=== PATIENT | male | born 1975 | race Caucasian/White ===

== ENCOUNTER 2021-08-14 18:12 | Inpatient (IN) | payer OTHER ==
[~2021-08-14] VITALS: Ht 154.7 cm; Wt 82.1 kg
[2021-08-14] MEDS ORDERED: SODIUM CHLORIDE 0.9% 1000ML 1,000 ML IV STA (19:28)
[2021-08-14] MEDS ORDERED: ONDANSETRON HCL INJ 2MG/ML 2ML 2 MG/ML VIAL IV STA (19:28)
[2021-08-14] MEDS ORDERED: FAMOTIDINE 20 MG/2 ML VIAL IV STA (19:28)
[2021-08-14] MEDS ORDERED: SODIUM CHLORIDE 0.9% 50ML 50 ML ONE ×3 (19:49→21:23)
[2021-08-14] MEDS ORDERED: IOPAMIDOL 370 MG/ML 200 ML INFUS..BTL INJ ONE ×2 (19:49→20:40)
[2021-08-14] MEDS ORDERED: PIPERACILLIN/TAZOBACTAM 3.375 GM in SODIUM CHLORIDE 0.9% 50ML 50 ML IV STA (20:22)
[2021-08-14] MEDS ORDERED: SODIUM CHLORIDE 0.9% 1000ML 1,000 ML ONE (21:07)
[2021-08-14] MEDS ORDERED: FAMOTIDINE 20 MG/2 ML VIAL IV ONE (21:07)
[2021-08-14] MEDS ORDERED: ONDANSETRON HCL INJ 2MG/ML 2ML 2 MG/ML VIAL ONE (21:07)
[2021-08-14] MEDS ORDERED: PIPERACILLIN/TAZOBACTAM 2.25 GM in SODIUM CHLORIDE 0.9% 50ML 50 ML IV ONE (21:15)
[2021-08-14] MEDS ORDERED: PIPERACILLIN/TAZOBACTAM SOD 2.25 GM VIAL ONE (21:23)
[2021-08-14] MEDS ORDERED: MORPHINE SULFATE INJ 4 MG/ML INJ 1ML IV PRN (22:00)
[2021-08-14] MEDS ORDERED: ONDANSETRON HCL INJ 2MG/ML 2ML 2 MG/ML VIAL IV PRN (22:00)
[2021-08-14 23:41] VITALS: BP 104/73
[2021-08-14] MEDS: SODIUM CHLORIDE 0.9% 1000ML 1,000 ML IV SCH (23:45)
[2021-08-15] VITALS (7 sets, daily range): BP systolic 99–107; BP diastolic 63–75
[2021-08-15] MEDS: PIPERACILLIN/TAZOBACTAM 3.375 GM in SODIUM CHLORIDE 0.9% 50ML 50 ML IV SCH ×4 (04:00→17:32)
[2021-08-15] MEDS: SODIUM CHLORIDE 0.9% 1000ML 1,000 ML IV SCH ×3 (06:00→22:21)
[2021-08-15 08:51] LABS: BASOPHILS # (AUTO) 0.1 (0.0-0.1); BASOPHILS % 0.7 % (0.0-1.0); EOSINOPHILS # (AUTO) 0.3 (0.0-0.4); EOSINOPHILS % 3.1 % (0.0-6.0); HEMATOCRIT 39.3 % (38.2-49.6); LYMPHOCYTES # (AUTO) 2.5 (1.0-3.2); LYMPHOCYTES % 28.9 % (18.0-39.1); MEAN CORPUSCULAR HGB CONC 33.1 g/dL (31-35); MEAN CORPUSCULAR VOLUME 87.7 fL (81-99); MONOCYTES # (AUTO) 0.6 (0.2-0.8); MONOCYTES % 7.4 % (4.4-11.3); NEUTROPHILS # (AUTO) 5.1 (2.1-6.9); NEUTROPHILS % 59.7 % (38.7-80.0); PLATELET COUNT 305 x10e3/uL (140-360); RED BLOOD COUNT 4.48 x10e6/uL (4.3-5.7); RED CELL DISTRIBUTION WIDTH 13.2 % (11.7-14.4)
[2021-08-15 09:32] LABS: ALBUMIN 3.3 g/dL (3.5-5.0); ALBUMIN/GLOBULIN RATIO 0.9 (0.8-2.0); ANION GAP 14.3 mmol/L (8-16); CALCIUM 8.7 mg/dL (8.4-10.2); CREATININE, SERUM 1.11 mg/dL (0.72-1.25); POTASSIUM 3.3 mmol/L (3.5-5.1)
[2021-08-16] VITALS (8 sets, daily range): BP systolic 99–114; BP diastolic 66–74
[2021-08-16] MEDS: PIPERACILLIN/TAZOBACTAM 3.375 GM in SODIUM CHLORIDE 0.9% 50ML 50 ML IV SCH ×5 (00:12→23:47)
[2021-08-16] MEDS: SODIUM CHLORIDE 0.9% 1000ML 1,000 ML IV SCH ×3 (05:32→22:00)
[2021-08-16] MEDS ORDERED: PIPERACILLIN/TAZOBACTAM 3.375 GM VIAL ONE (13:13)
[2021-08-16] MEDS ORDERED: BUPIVACAINE 0.25% 30ML SDV ONE (13:29)
[2021-08-16] MEDS ORDERED: HYDROMORPHONE 1MG/1ML INJ IV PRN (14:15)
[2021-08-16] MEDS ORDERED: HYDROCODONE/APAP 7.5MG-325MG 1 EA TAB PO PRN (14:15)
[2021-08-16] MEDS ORDERED: FENTANYL CITRATE/PF 100MCG/2 ML INJ ONE (14:30)
[2021-08-16] MEDS ORDERED: MEPERIDINE HCL INJ 25 MG/ML VIAL ONE (14:53)
[2021-08-16] MEDS: KETOROLAC TROMETHAMINE 30 MG/ML VIAL IV PRN (22:25)
[2021-08-17] VITALS: BP 104/67
[2021-08-17 04:00] VITALS: BP 98/65
[2021-08-17] MEDS: SODIUM CHLORIDE 0.9% 1000ML 1,000 ML IV SCH (05:44)
[2021-08-17] MEDS: PIPERACILLIN/TAZOBACTAM 3.375 GM in SODIUM CHLORIDE 0.9% 50ML 50 ML IV SCH ×2 (05:45→11:57)
[2021-08-17 06:20] LABS: BASOPHILS % 0.2 % (0.0-1.0); EOSINOPHILS % 0.3 % (0.0-6.0); HEMATOCRIT 35.9 % (38.2-49.6); LYMPHOCYTES # (AUTO) 2.2 (1.0-3.2); LYMPHOCYTES % 19.7 % (18.0-39.1); MEAN CORPUSCULAR HEMOGLOBIN 29.1 pg (28-32); MEAN CORPUSCULAR HGB CONC 33.4 g/dL (31-35); MEAN CORPUSCULAR VOLUME 87.1 fL (81-99); MONOCYTES # (AUTO) 0.7 (0.2-0.8); MONOCYTES % 6.6 % (4.4-11.3); NEUTROPHILS # (AUTO) 8.1 (2.1-6.9); NEUTROPHILS % 72.8 % (38.7-80.0); PLATELET COUNT 283 x10e3/uL (140-360); RED BLOOD COUNT 4.12 x10e6/uL (4.3-5.7)
[2021-08-17 06:51] LABS: ALBUMIN 3.1 g/dL (3.5-5.0); ALBUMIN/GLOBULIN RATIO 0.9 (0.8-2.0)
[2021-08-17 07:48] VITALS: BP_SYST 109; BP_SYST 156; BP_DIAS 72; BP_DIAS 82
[2021-08-17 09:00] VITALS: BP 109/72
[2021-08-17] MEDS: KETOROLAC TROMETHAMINE 30 MG/ML VIAL IV PRN (10:00)
[2021-08-17 12:00] VITALS: BP 103/64
[2021-08-17] MEDS ORDERED: PANTOPRAZOLE SO40 MG PO (15:01)
[2021-08-17] MEDS ORDERED: AUGMENTIN 875-1 EACH PO (15:02)
[2021-08-17] MEDS ORDERED: ZOFRAN4 MG PO (15:02)
[2021-08-17] MEDS ORDERED: ONDANSETRON HCL 4 MG ORAL DISINTEGRATING TAB PO PRN (15:30)
[2021-08-17] MEDS ORDERED: PANTOPRAZOLE SOD 40 MG TABEC PO SCH (16:30)
== END 2021-08-17 16:09 | disposition home or self-care (01) | DRG 419 ==
LOC: FSED 19:43 → ERHOLD 21:52 → MED/SURG2 23:37
PROVIDERS: ADMIT Internal Medicine; ATTEND Internal Medicine
PROC: 0FT44ZZ Resection of Gallbladder, Percutaneous Endoscopic Approach (ICD-10-PCS; principal; 2021-08-14)
DX: K80.00 Calculus of gallbladder with acute cholecystitis without obstruction (principal); E86.0 Dehydration; K75.9 Inflammatory liver disease, unspecified; Z20.822 Contact with and (suspected) exposure to COVID-19
CPT/HCPCS: 36415; 74177; 76705; 80053; 81003; 82553; 84484; 85025; 88304; 93005; 99284; C1766; J1885; J2175; J2270; J2405; J2543; J3010; J7030; Q9967; U0002